=== PATIENT | female | born 1960 | race Caucasian/White ===

== ENCOUNTER → 2019-10-04 10:54 | Outpatient (CLI) | payer BC, SELFPAY ==
--- NOTE | 2019-10-04 11:03 | XR_ITS ---
PROCEDURE: XR FOOT WT BEARING RT 3V CLINICAL INDICATION: pain Right foot pain COMPARISON: No exams were available for comparison FINDINGS: There has been prior bunionectomy of the distal aspect of the 1st metatarsal with 2 screws present in the mid aspect of the 1st metatarsal. Mild osteoarthritic changes are present at the talonavicular and navicular cuneiform joint. A small foreign body is noted along the plantar surface of the foot between the proximal 4th and 5th phalanges. IMPRESSION: Postsurgical and degenerative changes, no acute finding Dictated by: Shola Luevano MD 10/04/2019 12:36 Electronically signed by Shola Luevano MD in [place] 10/04/2019 12:36
--- NOTE | 2019-10-04 11:03 | XR_ITS ---
PROCEDURE: XR FOOT WT BEARING LT 3V CLINICAL INDICATION: pain Left foot pain. Prior surgery COMPARISON: No exams were available for comparison FINDINGS: No fracture or dislocation. No lytic or blastic change. There is normal mineralization. The joint spaces are well-preserved. No significant degenerative/arthritic changes. No erosive changes evident. Other findings:Prior bunionectomy. Two screws are present within the mid shaft of the 1st metatarsal IMPRESSION: Prior bunionectomy with postsurgical change otherwise negative Dictated by: Shola Luevano MD 10/04/2019 15:27 Electronically signed by Shola Luevano MD in [place] 10/04/2019 15:27
== END ==
PROVIDERS: Visit Provider Podiatrist
DX: M79.672 Pain in left foot (principal); M79.671 Pain in right foot
CPT/HCPCS: 73630

== ENCOUNTER → 2020-08-23 12:35 | Outpatient (CLI) | payer MEDICAID, SELFPAY ==
[2020-08-23 13:27] LABS: Chloride 103 mmol/L (98-107); Potassium 3.5 mmoL/L (3.5-5.1); Sodium 139 mmol/L (136-145)
[2020-08-23 13:30] LABS: Anion Gap 8.5 mEq/L (5-15); Blood Urea Nitrogen 13 mg/dl (7-17); Carbon Dioxide 31 mmol/L (22.0-30.0); Estimated Glomerular Filt Rate 73 ml/min (>60); GFR (African American) 89 ML/MIN (>60)
[2020-08-23 13:31] LABS: Glucose 142 mg/dl (74-100)
== END ==
PROVIDERS: PCP Nurse Practitioner Family; Visit Provider Specialist
DX: R29.2 Abnormal reflex (principal); R56.9 Unspecified convulsions
CPT/HCPCS: 36415; 80048

== ENCOUNTER → 2020-11-27 13:39 | Outpatient (CLI) | payer OTHER, SELFPAY | PROVIDERS: PCP Nurse Practitioner Family; Visit Provider Psychiatry & Neurology Neurology | DX: Z20.822 Contact with and (suspected) exposure to COVID-19 (principal); R56.9 Unspecified convulsions; G40.109 Localization-related (focal) (partial) symptomatic epilepsy and epileptic syndromes with simple partial seizures, not intractable, without status epilepticus; G40.802 Other epilepsy, not intractable, without status epilepticus | CPT/HCPCS: U0003 ==

== ENCOUNTER 2021-01-15 09:46 | Emergency (ER) | payer OTHER, SELFPAY ==
[2021-01-15 09:53] VITALS: BP 157/86; PULSE 57; RESP 19; TEMP 36.8; O2SAT 98; BMI 30.7
--- NOTE | 2021-01-15 10:18 | XR_ITS ---
PROCEDURE: XR ANKLE RT MIN 3V CLINICAL INDICATION: pain COMPARISON: CR XR FOOT WT BEARING RT 3V from 10/04/2019 FINDINGS: No fracture or dislocation. No lytic or blastic change. There is normal mineralization. The joint spaces are well-preserved. No significant degenerative/arthritic changes. No erosive changes evident. Other findings:Small calcaneal spur. Prior ORIF the 1st metatarsal IMPRESSION: No acute findings. Dictated by: Shola Luevano MD 01/15/2021 10:57 Shola Luevano MD in [place] 01/15/2021 10:57
--- NOTE | 2021-01-15 10:28 | HMH.EDUTC ---
[facility] [place] Disposition Clinical Impression: Pain of right heel Right ankle pain Qualifiers: Chronicity: acute Qualified Code(s): M25.571 - Pain in right ankle and joints of right foot Disposition: Home, Self-Care Condition on Discharge: Good Instructions: DI for Ankle Pain Additional Instructions: Rest the extremity, Elevate the extremity as tolerated while you are resting. Take the prednisone as prescribed. Follow up with Dr. Guaman (orthopedics). I put in a referral but you need to call her office and schedule an appointment. Follow up with your regular doctor. GO TO THE ER FOR ANY WORSENING SYMPTOMS Prescriptions: predniSONE [Prednisone 20mg Tab] 20 mg PO BID 4 Days #8 tab Transmission Status: Received by [facility] #[id number] Referrals: Adilia River APRN [Primary Care Provider] - Concepcion Guaman DPM [Staff Physician] - Time of Disposition: 10:59 Medical Decision Making - Medical Records Medical records reviewed: No: I reviewed the patient's medical records. - Wayne Inquiry Pt receiving controlled substance: No Vital Signs: 01/15/21 09:53 01/15/21 11:08 Temperature 98.2 F 98.2 F Temperature Source Oral Pulse Rate 63 Pulse Rate [Right] 57 L Respiratory Rate 19 19 Blood Pressure 147/89 H Blood Pressure [Right Arm] 157/86 H Blood Pressure Mean [Right Arm] 109 Blood Pressure Source [Right Arm] Automatic Cuff Blood Pressure Position [Right Arm] Sitting 02 Sat by Pulse Oximetry 98 Oxygen Delivery Method Room Air - Radiology Data #1 Image(s): Ankle Image Reviewed: Yes I reviewed the patient's radiology image, Yes I have reviewed radiologist's interpretation Preliminary Findings: Normal/NAD, No Fracture Seen PROCEDURE: XR ANKLE RT MIN 3V CLINICAL INDICATION: pain COMPARISON: CR XR FOOT WT BEARING RT 3V from 10/04/2019 FINDINGS: No fracture or dislocation. No lytic or blastic change. There is normal mineralization. The joint spaces are well-preserved. No significant degenerative/arthritic changes. No erosive changes evident. Other findings:Small calcaneal spur. Prior ORIF the 1st metatarsal IMPRESSION: No acute findings. Dictated by: Shola Luevano MD 01/15/2021 10:57 Shola Luevano MD in [place] 01/15/2021 10:57 [facility] [place] HPI - General Stated complaint: ankle pain, no accident Time Seen by Provider: 01/15/21 10:30 Mode of Arrival: Ambulatory Source of Information: Patient Limitations: No Limitations Description of Symptoms (Recalled from Triage Doc. by RN): pt needs a refill on her prozac. she was suppose to up from 10mg to 20mg and her pcp stopped taking her insurance. pt also complains of bilateral ankle pain. 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 The R is the worst and has pain 7/10 when she bears wt. HEENT Symptoms (Recalled from RN notes): No Resp Symptoms (Recalled from RN notes): No Skin Symptoms (Recalled from RN notes): No MS Symptoms (Recalled from RN notes): Yes (R ankle pain) Functional Status (Recalled from RN notes): na - History of Present Illness Provider Complaint: She states that she has had right ankle and heel pain for the past 2 weeks. She denies any known injury. She states that bearing weight and walking - Related Data Home Medications Medication Instructions Recorded Confirmed cholecalciferol (vitamin D3) 50 50 mcg PO DAILY 10/07/19 11/14/20 mcg (2,000 unit) capsule fluoxetine 10 mg capsule 10 mg PO DAILY 08/17/20 11/14/20 Previous Rx's Medication Instructions Recorded predniSONE [Prednisone 20mg 20 mg PO BID 4 Days #8 tab 01/15/21 Tab] Allergies Allergy/AdvReac Type Severity Reaction Status Date / Time No Known Allergies Allergy Verified 01/15/21 09:53 - Worker's Comp Is this a Worker's Comp case?: No [facility] History - Hepatitis A Screen Drug use history?: No High risk sexual behaviors?: No History of sexually transmitted infection?: No Currently employed?: No [employer]
[2021-01-15 11:08] VITALS: BP 147/89; PULSE 63; RESP 19; TEMP 36.8
== END 2021-01-15 11:08 | disposition home or self-care (01) ==
PROVIDERS: Emergency Provider Nurse Practitioner Family; PCP Nurse Practitioner Family
DX: M79.671 Pain in right foot (principal); F41.9 Anxiety disorder, unspecified; Z79.899 Other long term (current) drug therapy
CPT/HCPCS: 73610; 99202; G0463

== ENCOUNTER → 2021-02-03 10:47 | Outpatient (CLI) | payer OTHER, SELFPAY ==
[2021-02-03 12:52] LABS: Blood Urea Nitrogen 13 mg/dl (7-17); Estimated Glomerular Filt Rate 73 ml/min (>60); GFR (African American) 89 ML/MIN (>60)
== END ==
PROVIDERS: Visit Provider Podiatrist
DX: Z01.818 Encounter for other preprocedural examination (principal)
CPT/HCPCS: 36415; 82565; 84520

== ENCOUNTER → 2021-02-06 08:39 | Outpatient (CLI) | payer OTHER, SELFPAY ==
--- NOTE | 2021-02-06 08:39 | MR_ITS ---
PROCEDURE INFORMATION: Exam: MR Right Lower Extremity Joint Without and With Contrast; Ankle Exam date and time: 02/06/2021 8:39 AM Age: 60 years old Clinical indication: Pain; Ankle; Right; Additional info: Right ankle pain and instability. Prior HX surgery on foot for bunion 22yrs ago. Anterior ankle pain with swelling. Symptoms [id number]. No injury or trauma. Prior x-ray 01-15-21 15ml prohance given. Lot: [id number] exp: Oct 2022. Bun: 13 cre: 0.8 gfr: 73. TECHNIQUE: Imaging protocol: MR of the Right lower extremity without and with contrast. Exam focused on the ankle. Contrast material: PROHANCE; Contrast volume: 15 ml; Contrast route: IV; COMPARISON: CR XR ANKLE RT MIN 3V 01/15/2021 10:16 AM FINDINGS: Bones and cartilage: There is limited abnormal edematous marrow signal and associated enhancement in the neck and distal head of the talus and to a lesser extent the cuboid, most likely etiology a stress response. No MRI evidence of linear fracture. Joint spaces: Small effusion in the talonavicular articulation. This is probably reactive. A septic articulation would be unusual here but is not entirely excluded. LIGAMENTS: Distal tibiofibular syndesmosis: Unremarkable. No tear. Anterior talofibular ligament: Unremarkable. No tear. Posterior talofibular ligament: Unremarkable. No tear. Calcaneofibular ligament: Unremarkable. No tear. Deltoid ligament complex: Unremarkable. No tear. TENDONS: Flexor tendons of foot: Unremarkable as visualized. Tibialis posterior tendon: Unremarkable as visualized. Peroneal tendons: Unremarkable as visualized. Extensor tendons of foot: Unremarkable as visualized. Tibialis anterior tendon: Unremarkable as visualized. Achilles tendon: Unremarkable as visualized. Tarsal canal (Sinus tarsi): Unremarkable. Normal signal of the fat. Tarsal tunnel: Unremarkable. Muscles: Unremarkable. Soft tissues: Unremarkable. Plantar fascia: Plantar fascia is unremarkable. IMPRESSION: 1. There is limited abnormal edematous marrow signal and associated enhancement in the neck and distal head of the talus and to a lesser extent the cuboid, most likely etiology a stress response. No MRI evidence of linear fracture. 2. Small effusion in the talonavicular articulation. This is probably reactive. A septic articulation would be unusual here but is not entirely excluded.
== END ==
PROVIDERS: PCP Family Medicine; Visit Provider Podiatrist
DX: S93.491S Sprain of other ligament of right ankle, sequela (principal); M25.371 Other instability, right ankle
CPT/HCPCS: 73723; A9576

== ENCOUNTER 2021-03-08 10:00 | Outpatient (RCR) | payer OTHER, SELFPAY ==
--- NOTE | 2021-02-28 10:18 | HMH.PTOPEV ---
PT Outpatient Evaluation Rehab PT Outpatient Evaluation Start: 02/28/21 09:30 Freq: Status: Active Protocol: Document 02/28/21 10:03 GABE (Rec: 02/28/21 10:18 GABE [id number]) Electronically Signed By Jose Monzon PT 02/28/21 10:03 Outpatient Therapy Subjective History Subjective History THis is the initial Physical Therapy Evaluation for Yeimy Bradley. Pt is a 61 y/o female referred to PT for c/o R ankle pain. Pt reports she bought a treadmill and began using it in or October of this year. Pt reports she was using it for about two weeks before she started noticing pain in her R ankle. Pt reports pain continued w/ any wbing activity. Pt reprots she saw DPM and was put in boot for ~ 3 weeks and then transitioned to ankle brace. Pt reports she still has pain in R ankle. Chief Complaint Pain Symptom Type Ache,Sharp,Dull,Stabbing Symptoms Relieved By Rest/Positioning,Ice, Prescription Meds Symptoms Aggravated By Standing,Physical Activity, Walking Prior Functional Limitations None Current Functional Limitations Housework,Recreation Activity, Walking,Stairs,Balance Symptom Description Constant but Variable Level of pain today (0-10) 2 Pain scale - at its best (0-10) 1 Pain scale - at its worst (0-10) 10 Ankle/Foot Eval Gait Observation General Gait Pattern Observation Antalgic Gait Assistive Device Ambulation Assistive Device None Palpation Tenderness right Ankle/Foot Palpation Findings Tenderness Ankle/Foot Palpation Overall Comment TTP along post tib tendon and medial ankle jt Deltoid ligament TTP positive ROM bilateral Ankle/Foot ROM Reason Not Measured Within Functional Limits MMT right Ankle Dorsiflexion Strength Grade 4 Good Ankle Plantarflexion Strength Grade 5 Normal Foot Eversion Strength Grade 5 Normal Foot Inversion Strength Grade 4- Good- Special Tests Ankle Anterior Drawer Test Negative Right Ankle Eversion Test Positive Right Talar Tilt Test Positive Right Ankle Inversion (supination) Test Positive Right Outpatient Therapy Assessment Impairments Problems/Impairmments Palpation Tenderness,Impa
== END 2021-03-08 10:05 | disposition home or self-care (01) ==
LOC: PT 10:00
PROVIDERS: PCP Family Medicine; Visit Provider Podiatrist
DX: S93.401A Sprain of unspecified ligament of right ankle, initial encounter (principal); M67.88 Other specified disorders of synovium and tendon, other site
CPT/HCPCS: 97110; 97163

== ENCOUNTER → 2022-05-15 12:47 | Outpatient (CLI) | payer OTHER, SELFPAY ==
--- NOTE | 2022-05-15 12:47 | MM_ITS ---
PROCEDURE INFORMATION: Exam: Bilateral Screening 3D Mammography Exam date and time: 05/15/2022 12:51 PM Age: 62 years old Clinical indication: Screening examination TECHNIQUE: Imaging protocol: Bilateral Screening tomosynthesis and 2D mammography including computer-aided detection (CAD) when performed. COMPARISON: DMSB DIG MAMM-SCREEN SRIRAM 08/09/2016 3:56 PM FINDINGS: MAMMOGRAPHY: Breast composition: The breasts are almost entirely fatty. Mass: None. Architectural distortion: None. Calcifications: No suspicious calcifications. Asymmetric density: None. Skin thickening: None. Axillary adenopathy: None. IMPRESSION: No mammographic evidence of malignancy. Annual screening is recommended unless otherwise clinically indicated. ASSESSMENT: BI-RADS Category 1: Negative
== END ==
PROVIDERS: PCP Family Medicine; Visit Provider Family Medicine
DX: Z12.31 Encounter for screening mammogram for malignant neoplasm of breast (principal)
CPT/HCPCS: 77063; 77067

== ENCOUNTER 2023-09-26 21:05 | Outpatient (CLI) | payer OTHER, SELFPAY ==
[2023-09-26 18:01] LABS: Basophils # 0.1 K/mm3 (0-0.2); Basophils % 1.1 % (0.1-2.0); Eosinophils # 0.2 K/mm3 (0.0-0.4); Eosinophils % 3.1 % (0.1-12.0); Hematocrit 43.1 % (37.0-47.0); Hemoglobin 14.4 g/dL (12.2-16.2); Lymphocytes # 2.3 K/mm3 (0.7-4.5); Mean Corpuscular HGB Conc 33.5 g/dL (31.8-35.4); Mean Corpuscular Hemoglobin 30.4 pg (27.0-31.2); Mean Corpuscular Volume 90.9 fl (81-99); Mean Platelet Volume 8.5 fl (7.4-10.4); Monocytes # 0.3 K/mm3 (0.1-1.0); Neutrophils # 2.9 K/mm3 (1.8-7.8); Neutrophils % 50.8 % (37.0-80.0); Platelet Count 346 K/mm3 (142-424); Red Blood Count 4.75 M/mm3 (4.20-5.40); Red Cell Distribution Width 14.1 % (11.5-17.5); White Blood Count 5.7 K/mm3 (4.8-10.8)
[2023-09-26 18:10] LABS: Alanine Aminotransferase 29 U/L (12-78); Albumin/Globulin Ratio 1.5 (1.1-1.8); Alkaline Phosphatase 93 U/L (38-126); Anion Gap 9.7 mEq/L (5-15); Aspartate Amino Transferase 30 U/L (14-36); Bilirubin,Total 0.4 mg/dl (0.2-1.3); Blood Urea Nitrogen 14 mg/dl (7-17); Calcium 8.9 mg/dl (8.4-10.2); Carbon Dioxide 31 mmol/L (22.0-30.0); Chloride 103 mmol/L (98-107); Chol/HDL Ratio 5.9 (1-3.5); Cholesterol 255 mg/dl (140-200); Estimated Glomerular Filt Rate 85 ml/min (>60); GFR (African American) 103 ML/MIN (>60); Globulin 2.6 g/dL (1.3-3.2); Glucose 107 mg/dl (74-100); HDL Cholesterol 43 mg/dl (40-60); Potassium 3.7 mmoL/L (3.5-5.1); Sodium 140 mmol/L (136-145); Total Protein,Serum 6.6 g/dl (6.3-8.2); Triglycerides 134 mg/dl (30-150); VLDL Cholesterol 27 mg/dL (0-40)
[2023-09-26 18:20] LABS: Direct LDL Cholesterol 159.79 mg/dL (100-129)
[2023-09-26 18:25] LABS: 25-OH Vitamin D, Total 38.5 ng/mL (30-100)
[2023-09-26 19:01] LABS: Vitamin B12 604 pg/mL (239-931)
== END 2023-09-26 23:59 ==
LOC: LAB.DROPOF 21:06
PROVIDERS: PCP Family Medicine; Visit Provider Family Medicine
DX: I10 Essential (primary) hypertension (principal); F33.9 Major depressive disorder, recurrent, unspecified; G47.33 Obstructive sleep apnea (adult) (pediatric); E66.9 Obesity, unspecified; Z68.32 Body mass index [BMI] 32.0-32.9, adult
CPT/HCPCS: 80053; 80061; 82306; 82607; 85025

== ENCOUNTER 2024-09-13 10:07 | Outpatient (CLI) | payer OTHER, SELFPAY ==
[2024-09-13 10:49] LABS: Eosinophils # 0.1 K/mm3 (0.0-0.4); Lymphocytes % 38.7 % (10-50); Neutrophils # 3.5 K/mm3 (1.8-7.8)
[2024-09-13 11:11] LABS: Basophils % 0.6 % (0.1-2.0); Eosinophils % 1.5 % (0.1-12.0); Hemoglobin 13.8 g/dL (12.2-16.2); Lymphocytes # 2.5 K/mm3 (0.7-4.5); Mean Corpuscular HGB Conc 33.7 g/dL (31.8-35.4); Mean Corpuscular Hemoglobin 29.4 pg (27.0-31.2); Mean Corpuscular Volume 87.4 fl (81-99); Mean Platelet Volume 9.5 fl (7.4-10.4); Monocytes # 0.3 K/mm3 (0.1-1.0); Monocytes % 5.1 % (1.7-9.3); Neutrophils % 53.9 % (37.0-80.0); Platelet Count 340 K/mm3 (142-424); Red Blood Count 4.69 M/mm3 (4.20-5.40); White Blood Count 6.5 K/mm3 (4.8-10.8)
[2024-09-13 11:28] LABS: Hemoglobin A1C 5.5 % (4.0-6.0)
[2024-09-13 11:59] LABS: 25-OH Vitamin D, Total 41.9 ng/mL (30-100)
[2024-09-13 12:01] LABS: Alanine Aminotransferase 30 U/L (12-78); Albumin Level 4.1 g/dl (3.5-5.0); Albumin/Globulin Ratio 1.6 (1.1-1.8); Alkaline Phosphatase 96 U/L (38-126); Anion Gap 9.7 mEq/L (5-15); Aspartate Amino Transferase 30 U/L (14-36); Bilirubin,Total 0.4 mg/dl (0.2-1.3); Blood Urea Nitrogen 13 mg/dl (7-17); Calcium 9.1 mg/dl (8.4-10.2); Carbon Dioxide 32 mmol/L (22.0-30.0); Chloride 99 mmol/L (98-107); Chol/HDL Ratio 5.6 (1-3.5); Cholesterol 270 mg/dl (140-200); Estimated Glomerular Filt Rate 85 ml/min (>60); GFR (African American) 102 ML/MIN (>60); Globulin 2.5 g/dL (1.3-3.2); Glucose 94 mg/dl (74-100); HDL Cholesterol 48 mg/dl (40-60); Magnesium 1.8 mg/dl (1.6-2.3); Potassium 3.7 mmoL/L (3.5-5.1); Sodium 137 mmol/L (136-145); Total Protein,Serum 6.6 g/dl (6.3-8.2); Triglycerides 118 mg/dl (30-150); VLDL Cholesterol 24 mg/dL (0-40)
[2024-09-13 12:12] LABS: C-Reactive Protein 9.6 mg/L (0-4)
[2024-09-13 12:18] LABS: T4 (Thyroxine) 7.9 ug/dl (5.53-11.0)
[2024-09-13 12:32] LABS: Thyroid Stimulating Hormone 1.11 uIU/mL (0.465-4.68)
[2024-09-13 13:06] LABS: Iron 110 ug/dL (37-170)
[2024-09-13 13:18] LABS: Total Iron Binding Capacity 317 ug/dL (265-497)
[2024-09-13 14:35] LABS: Vitamin B12 494 pg/mL (239-931)
[2024-09-14 08:14] LABS: DHEA-Sulfate 95.1 ug/dL (29.4-220.5); Estradiol 11.9 pg/mL (0.0-54.7); FSH 50.7 mIU/mL (25.8-134.8); LH 28.5 mIU/mL (7.7-58.5)
== END 2024-09-13 23:59 | disposition home or self-care (01) ==
LOC: LAB 10:08
PROVIDERS: PCP Family Medicine; Visit Provider Family Medicine
DX: I10 Essential (primary) hypertension (principal); Z84.89 Family history of other specified conditions
CPT/HCPCS: 36415; 80053; 80061; 82306; 82607; 82626; 82670; 83001; 83002; 83036; 83540; 83550; 83735; 84436; 84443; 85025; 86140